=== PATIENT | female | born 1990 | race Hispanic/Latino ===

== ENCOUNTER → 2024-04-17 10:27 | Outpatient (REF) | payer OTHER, SELFPAY | LOC: PNTC 10:27 | PROVIDERS: ATTENDING PHYSICIAN Obstetrics & Gynecology | DX: O66.5 Attempted application of vacuum extractor and forceps (principal); O99.210 Obesity complicating pregnancy, unspecified trimester; O35.5XX0 Maternal care for (suspected) damage to fetus by drugs, not applicable or unspecified | CPT/HCPCS: 76805 ==

== ENCOUNTER → 2024-05-16 10:50 | Outpatient (REF) | payer OTHER, SELFPAY | LOC: PNTC 10:50 | PROVIDERS: ATTENDING PHYSICIAN Obstetrics & Gynecology | DX: O99.320 Drug use complicating pregnancy, unspecified trimester (principal); O99.210 Obesity complicating pregnancy, unspecified trimester | CPT/HCPCS: 76811 ==

== ENCOUNTER → 2024-07-10 11:26 | Outpatient (REF) | payer OTHER, SELFPAY | LOC: PNTC 11:26 | PROVIDERS: ATTENDING PHYSICIAN Obstetrics & Gynecology | DX: O99.210 Obesity complicating pregnancy, unspecified trimester (principal); O99.320 Drug use complicating pregnancy, unspecified trimester | CPT/HCPCS: 76816 ==